=== PATIENT | female | born 1980 | race African-American/Black ===

== ENCOUNTER 2017-04-05 09:56 | Emergency (ER) | payer OTHER ==
[2017-04-05] MEDS ORDERED: NS 0.9% 1000 ML* 1,000 ML IV ONE (10:38)
[2017-04-05 11:05] LABS: Hematocrit 42 % (35-47); Mean Corpuscular HGB Conc 34 g/dl (31-36); Mean Corpuscular Hemoglobin 32 pg (27-31); Mean Corpuscular Volume 94 fL (80-97); Mean Platelet Volume 7 um3 (7.4-10.4); Red Blood Count 4.43 10^6/ul (4.0-5.4); Red Cell Distribution Width 12 % (10.5-15); White Blood Count 3.8 10^3/ul (3.5-10.8)
[2017-04-05 11:16] LABS: Urine Bacteria Absent (Absent); Urine Bilirubin Negative (Negative); Urine Glucose Negative (Negative); Urine Nitrite Negative (Negative)
[2017-04-05 11:24] LABS: ALT 14 U/L (7-52); AST 17 U/L (13-39); Albumin 4.7 g/dL (3.2-5.2); Alkaline Phosphatase 40 U/L (34-104); Anion Gap 8 mmol/L (2-11); BUN/Creatinine Ratio 20.8 (8-20); Blood Urea Nitrogen 10 mg/dL (6-24); C Reactive Protein < 1.00 mg/L (< 5.00); CO2 Carbon Dioxide 24 mmol/L (22-32); Calcium 9.5 mg/dL (8.6-10.3); Chloride 107 mmol/L (101-111); EGFR African American 190.4 (>60); Globulin 3.1 g/dL (2-4); Glucose 77 mg/dL (70-100); Magnesium 1.9 mg/dL (1.9-2.7); Potassium 3.7 mmol/L (3.5-5.0); Sodium 139 mmol/L (133-145); Total Protein 7.8 g/dL (6.4-8.9)
[2017-04-05 11:31] LABS: Benzodiazepine Urine Screen None Detected (None Detect)
[2017-04-05 11:39] LABS: Alcohol < 10 mg/dL (<10)
[2017-04-05 11:55] LABS: TSH (Thyroid Stimulating Horm) 0.79 mcIU/mL (0.34-5.60)
[2017-04-05 12:50] VITALS: BP 114/68
--- NOTE | 2017-04-05 17:26 | ED ---
Sukumar Cox Angela, scribed for Rocky Montemayor MD on 04/05/17 at 1039 . Dizziness - HPI Summary HPI Summary: This pt is a 36 y/o female presenting to [facility] c/o dizziness and light- headedness since yesterday. Pt reports that yesterday she had two alcoholic drinks at a friend's house yesterday. One drink was made by a friend, which included cranberry soda. She states the freezer was blocking where the drink was being made, unable to see what was put in the drink. As she was drinking the drink she noticed something very small floating in her drink. Pt believes something was added to her drink. The second drink she had was a beer. Pt notes that she left after the 2 drinks and states she felt "like she had been at the bars all night." Today upon waking up, pt felt light-headed and off-balance, nauseous, subjective fever and chills. She reports she almost passed out today. She denies any PMHx. Pt is a former smoker, quit 2 years ago. Pt is a former marijuana smoker, quit 3 weeks ago. - History Of Current Complaint Chief Complaint: EDDizziness Stated Complaint: FEVER,DIZZY Time Seen by Provider: 04/05/17 10:26 Hx Obtained From: Patient Onset/Duration: Still Present Timing: Hours Character: Lightheaded, Dizzy Aggravating Factor(s): Nothing Alleviating Factor(s): Nothing Associated Signs And Symptoms: Positive: Nausea, Other: - POS: off-balance, light-headedness, nausea, and chills.. Negative: Vomiting - Allergies/Home Medications Allergies/Adverse Reactions: Allergies Allergy/AdvReac Type Severity Reaction Status Date / Time No Known Allergies Allergy Verified 08/22/15 11:52 PMH/Surg Hx/FS Hx/Imm Hx Endocrine/Hematology History: Denies: Hx Diabetes Cardiovascular History: Denies: Hx Hypertension Psychiatric History: Reports: Hx Anxiety, Hx Depression - Surgical History Surgery Procedure, Year, and Place: Keloid surgery on chest. Infectious Disease History: No Infectious Disease History: Denies: Traveled Outside the [place] in Last 30 Days - Family History Known Family History: Positive: Cardiac Disease Negative: Hypertension, Diabetes, Other - high cholesterol - Social History Alcohol Use: Occasionally Alcohol Amount: denies while Substance Use Type: Reports: Marijuana - quit 3 weeks ago. Substance Use Comment - Amount & Last Used: denies while Smoking Status (MU): Former Smoker - quit 2 years ago Type: Cigarettes Amount Used/How Often: 1/4 PPD Length of Time of Smoking/Using Tobacco: 10 years Have You Smoked in the Last Year: No Review of Systems Positive: Fever - subjective, Chills Eyes: Negative ENT: Negative Cardiovascular: Negative Positive: Nausea. Negative: Vomiting Neurological: Other - dizziness, light-headedness, off-balance All Other Systems Reviewed And Are Negative: Yes Physical Exam - Summary Physical Exam Summary: VITAL SIGNS: Reviewed. GENERAL: Patient is a well-developed and nourished female who is lying comfortable in the stretcher. Patient is not in any acute respiratory distress. HEAD AND FACE: No signs of trauma. No ecchymosis, hematomas or skull depressions. No sinus tenderness. EYES: PERRLA, EOMI x 2, No injected conjunctiva, no nystagmus. EARS: Hearing grossly intact. Ear canals and tympanic membranes are within normal limits. MOUTH: Oropharynx within normal limits. NECK: Supple, trachea is midline, no adenopathy, no JVD, no carotid bruit, no c- spine tenderness, neck with full ROM. CHEST: Symmetric, no tenderness at palpation LUNGS: Clear to auscultation bilaterally. No wheezing or crackles. CVS: Regular rate and rhythm, S1 and S2 present, no murmurs or gallops appreciated. ABDOMEN: Soft, non-tender. No signs of distention. No rebound no guarding, and no masses palpated. Bowel sounds are normal. EXTREMITIES: FROM in all major joints, no edema, no cyanosis or clubbing. NEURO: Alert and oriented x 3. No acute neurological deficits. Speech is normal and follows commands. SKIN: Dry and warm GCS: 15 Triage Information Reviewed: Yes Vital Signs On Initial Exam: Initial Vitals Temp Pulse Resp BP Pulse Ox 97.9 F 95 16 123/93 98 04/05/17 09:57 04/05/17 09:57 04/05/17 09:57 04/05/17 09:57 04/05/17 09:57 Vital Signs Reviewed: Yes Diagnostics - Vital Signs Vital Signs Temp Pulse Resp BP Pulse Ox 04/05/17 09:57 97.9 F 95 16 123/93 98 - Laboratory Lab Results: Lab Results 04/05/17 04/05/17 04/05/17 Range/Units 10:50 10:50 10:50 WBC 3.8 (3.5-10.8) 10^3/ul RBC 4.43 (4.0-5.4) 10^6/ul Hgb 14.0 (12.0-16.0) g/dl Hct 42 (35-47) % MCV 94 (80-97) fL MCH 32 H (27-31) pg MCHC 34 (31-36) g/dl RDW 12 (10.5-15) % Plt Count 243 (150-450) 10^3/ul MPV 7 L (7.4-10.4) um3 Neut % (Auto) 50.7 (38-83) % Lymph % (Auto) 37.5 (25-47) % [place] % (Auto) 10.0 H (1-9) % Eos % (Auto) 0.9 (0-6) % Baso % (Auto) 0.9 (0-2) % Absolute Neuts (auto) 1.9 (1.5-7.7) 10^3/ul Absolute Lymphs (auto) 1.4 (1.0-4.8) 10^3/ul Absolute Monos (auto) 0.4 (0-0.8) 10^3/ul Absolute Eos (auto) 0 (0-0.6) 10^3/ul Absolute Basos (auto) 0 (0-0.2) 10^3/ul Absolute Nucleated RBC 0 10^3/ul Nucleated RBC % 0.1 Sodium 139 (133-145) mmol/L Potassium 3.7 (3.5-5.0) mmol/L Chloride 107 (101-111) mmol/L Carbon Dioxide 24 (22-32) mmol/L Anion Gap 8 (2-11) mmol/L BUN 10 (6-24) mg/dL Creatinine 0.48 L (0.51-0.95) mg/dL Est GFR ( Amer) 190.4 (>60) Est GFR (Non-Af Amer) 148.0 (>60) BUN/Creatinine Ratio 20.8 H (8-20) Glucose 77 (70-100) mg/dL Calcium 9.5 (8.6-10.3) mg/dL Magnesium 1.9 (1.9-2.7) mg/dL Total Bilirubin 1.50 H (0.2-1.0) mg/dL AST 17 (13-39) U/L ALT 14 (7-52) U/L Alkaline Phosphatase 40 (34-104) U/L Troponin I 0.00 (<0.04) ng/mL C-Reactive Protein < 1.00 (< 5.00) mg/L B-Natriuretic Peptide 8 ( - 100) pg/mL Total Protein 7.8 (6.4-8.9) g/dL Albumin 4.7 (3.2-5.2) g/dL Globulin 3.1 (2-4) g/dL Albumin/Globulin Ratio 1.5 (1-3) TSH 0.79 (0.34-5.60) mcIU/mL Beta HCG, Quant < 0.60 mIU/mL Urine Color Urine Appearance Urine pH (5-9) Ur Specific [place] (1.010-1.030) Urine Protein (Negative) Urine Ketones (Negative) Urine Blood (Negative) Urine Nitrate (Negative) Urine Bilirubin (Negative) Urine Urobilinogen (Negative) Ur Leukocyte Esterase (Negative) Urine WBC (Auto) (Absent) Urine RBC (Auto) (Absent) Ur Squamous Epith Cells (Absent) Urine Bacteria (Absent) Urine Glucose (Negative) Urine Opiates Screen (None Detect) Ur Barbiturates Screen (None Detect) Ur Phencyclidine Scrn (None Detect) Ur Amphetamines Screen (None Detect) U Benzodiazepines Scrn (None Detect) Urine Cocaine Screen (None Detect) U Cannabinoids Screen (None Detect) Serum Alcohol < 10 (<10) mg/dL HIV 1&2 Antibody (Nonreactive) 04/05/17 04/05/17 04/05/17 Range/Units 10:50 11:00 11:00 WBC (3.5-10.8) 10^3/ul RBC (4.0-5.4) 10^6/ul Hgb (12.0-16.0) g/dl Hct (35-47) % MCV (80-97) fL MCH (27-31) pg MCHC (31-36) g/dl RDW (10.5-15) % Plt Count (150-450) 10^3/ul MPV (7.4-10.4) um3 Neut % (Auto) (38-83) % Lymph % (Auto) (25-47) % [place] % (Auto) (1-9) % Eos % (Auto) (0-6) % Baso % (Auto) (0-2) % Absolute Neuts (auto) (1.5-7.7) 10^3/ul Absolute Lymphs (auto) (1.0-4.8) 10^3/ul Absolute Monos (auto) (0-0.8) 10^3/ul Absolute Eos (auto) (0-0.6) 10^3/ul Absolute Basos (auto) (0-0.2) 10^3/ul Absolute Nucleated RBC 10^3/ul Nucleated RBC % Sodium (133-145) mmol/L Potassium (3.5-5.0) mmol/L Chloride (101-111) mmol/L Carbon Dioxide (22-32) mmol/L Anion Gap (2-11) mmol/L BUN (6-24) mg/dL Creatinine (0.51-0.95) mg/dL Est GFR ( Amer) (>60) Est GFR (Non-Af Amer) (>60) BUN/Creatinine Ratio (8-20) Glucose (70-100) mg/dL Calcium (8.6-10.3) mg/dL Magnesium (1.9-2.7) mg/dL Total Bilirubin (0.2-1.0) mg/dL AST (13-39) U/L ALT (7-52) U/L Alkaline Phosphatase (34-104) U/L Troponin I (<0.04) ng/mL C-Reactive Protein (< 5.00) mg/L B-Natriuretic Peptide ( - 100) pg/mL Total Protein (6.4-8.9) g/dL Albumin (3.2-5.2) g/dL Globulin (2-4) g/dL Albumin/Globulin Ratio (1-3) TSH (0.34-5.60) mcIU/mL Beta HCG, Quant mIU/mL Urine Color Yellow Urine Appearance Cloudy Urine pH 5.0 (5-9) Ur Specific [place] 1.021 (1.010-1.030) Urine Protein Negative (Negative) Urine Ketones Trace H (Negative) Urine Blood 1+ H (Negative) Urine Nitrate Negative (Negative) Urine Bilirubin Negative (Negative) Urine Urobilinogen Negative (Negative) Ur Leukocyte Esterase Negative (Negative) Urine WBC (Auto) Trace(0-5/hpf) (Absent) Urine RBC (Auto) Trace(0-2/hpf) (Absent) Ur Squamous Epith Cells Present H (Absent) Urine Bacteria Absent (Absent) Urine Glucose Negative (Negative) Urine Opiates Screen None detected (None Detect) Ur Barbiturates Screen None detected (None Detect) Ur Phencyclidine Scrn None detected (None Detect) Ur Amphetamines Screen None detected (None Detect) U Benzodiazepines Scrn None detected (None Detect) Urine Cocaine Screen None detected (None Detect) U Cannabinoids Screen Presumptive positive H (None Detect) Serum Alcohol (<10) mg/dL HIV 1&2 Antibody Nonreactive (Nonreactive) Result Diagrams: 04/05/17 10:50 04/05/17 10:50 Lab Statement: Any lab studies that have been ordered have been reviewed, and results considered in the medical decision making process. - EKG 1107 Cardiac Rate: NL EKG Rhythm: Sinus Rhythm - at 76 bpm EKG Interpretation: No ST elevation. Normal axis Re-Evaluation - Re-Evaluation First Eval Re-Evaluation Time: 12:31 Comment: Pt reports feeling better. Dizzy Course/Dx - Course Assessment/Plan: This pt is a 36 y/o female presenting to [facility] c/o dizziness and light-headedness since yesterday. Pt reports that yesterday she had two alcoholic drinks at a friend's house yesterday. One drink was made by a friend, which included cranberry soda. She states the freezer was blocking where the drink was being made, unable to see what was put in the drink. As she was drinking the drink she noticed something very small floating in her drink. Pt believes something was added to her drink. The second drink she had was a beer. Pt notes that she left after the 2 drinks and states she felt "like she had been at the bars all night." Today upon waking up, pt felt light-headed and off- balance, nauseous, subjective fever and chills. She reports she almost passed out today. She denies any PMHx. Pt is a former smoker, quit 2 years ago. Pt is a former marijuana smoker, quit 3 weeks ago. Test results without any significant abnormalities except positive for marijuana. In the ED course the pt was hydrated. The pt is feeling better. Before discharge, neurological exam is normal and intact. Therefore, I decided not to a head CT. Since the pt is feeling better and has no complaints, she will be discharged home with follow up from her PCP. Pt is hemodynamically stable, alert and oriented x3. - Diagnoses Differential Diagnosis/HQI/PQRI: Benign Paroxysmal Positional Vertigo, Labyrinthitis, Meniere's Disease, Medication Reaction Provider Diagnoses: Dizziness Discharge - Discharge Plan Condition: Stable Disposition: HOME Patient Education Materials: Dizziness (ED) Referrals: Rocky Lui MD [Primary Care Provider] - Additional Instructions: Please follow up with your primary care provider. RETURN TO THE ED FOR ANY WORSENING OR NEW SYMPTOMS. The documentation as recorded by the Sukumar heard Angela accurately reflects the service I personally performed and the decisions made by me, Rocky Montemayor MD.
== END 2017-04-05 12:54 | disposition home or self-care (01) ==
LOC: ED 09:56
DX: R42 Dizziness and giddiness (principal); R11.0 Nausea; R50.9 Fever, unspecified; F17.210 Nicotine dependence, cigarettes, uncomplicated
CPT/HCPCS: 36415; 80053; 80307; 80320; 81003; 81015; 83735; 83880; 84443; 84484; 84702; 85025; 86140; 86703; 93005; 99283; G0480

== ENCOUNTER 2017-04-11 08:15 | Emergency (ER) | payer OTHER ==
[2017-04-11 10:49] LABS: Hematocrit 38 % (35-47); Hemoglobin 12.8 g/dl (12.0-16.0); Mean Corpuscular HGB Conc 34 g/dl (31-36); Mean Corpuscular Hemoglobin 32 pg (27-31); Mean Corpuscular Volume 94 fL (80-97); Mean Platelet Volume 7 um3 (7.4-10.4); Red Blood Count 4.06 10^6/ul (4.0-5.4); Red Cell Distribution Width 13 % (10.5-15); White Blood Count 3.3 10^3/ul (3.5-10.8)
[2017-04-11 10:52] LABS: Add Diff/Slide Review? Slide Review Added; Comments Flag Yes
[2017-04-11 11:12] LABS: ALT 22 U/L (7-52); AST 18 U/L (13-39); Alkaline Phosphatase 33 U/L (34-104); Amylase 72 U/L (29-103); Anion Gap 5 mmol/L (2-11); Blood Urea Nitrogen 11 mg/dL (6-24); C Reactive Protein < 1.00 mg/L (< 5.00); CO2 Carbon Dioxide 28 mmol/L (22-32); Calcium 9.2 mg/dL (8.6-10.3); Chloride 104 mmol/L (101-111); Creatine Kinase 67 U/L (10-223); EGFR African American 162.7 (>60); EGFR Non-African American 126.5 (>60); Glucose 88 mg/dL (70-100); Lipase 23 U/L (11.0-82.0); Potassium 3.6 mmol/L (3.5-5.0); Sodium 137 mmol/L (133-145)
[2017-04-11 11:45] LABS: Urine Bilirubin Negative (Negative); Urine Glucose Negative (Negative); Urine Nitrite Negative (Negative)
--- NOTE | 2017-04-11 12:36 | RAD ---
INDICATION: Assess IUD position COMPARISON: None TECHNIQUE: Longitudinal and transverse transabdominal and transvaginal scans of the pelvis were obtained. FINDINGS: Uterus: The uterus is normal in size. There are no focal masses. The uterus measures 8.5 x 3.1 x 5.5 cm. Endometrial thickness: The endometrial thickness is measured at 0.4 cm. There is an IUD in expected position. Free fluid: There is no significant free fluid . Ovaries: The ovaries are normal in size. The right ovary measures 3.4 x 2.2 x 2.6 cm. The left ovary measures 4.0 x 1.8 x 3.6 cm. . Doppler interrogation demonstrates flow to each ovary. Other: None IMPRESSION: IUD IN EXPECTED POSITION
[2017-04-11 13:17] VITALS: BP 121/76
--- NOTE | 2017-04-11 21:11 | ED ---
Natty Cox Alfonso, scribed for Josie Joe MD on 04/11/17 at 1056 . GI/ HPI - HPI Summary HPI Summary: This patient is a 36 year old F presenting to [facility] with a chief complaint of pelvic pain since earlier today. She states my Mirena is knocked out of place and I did the check reaching for the string and it is on the side. [facility] She has an appointment in 2 days ago to remove the IUD but when she had worsening abdominal pain she came for evaluation now.. The patient rates the sharp pain 4/10 in severity. Symptoms aggravated by urination and BM. Symptoms alleviated by nothing. Patient reports CP (currently resolved, every 5-10 minutes for a few seconds at a time this morning while at rest drinking coffee), right sided abdominal pain (with BM and currently resolved), and vaginal bleeding (spotting). Patient denies SOB and nausea. She was seen at [facility] on 04/05/17 with a provider diagnosis of dizziness. In her past she has worn a heart monitor and kept a log in which the results came back good. Pt's mother of CAD at age 51 so she worries when she has chest pain. - History of Current Complaint Chief Complaint: EDAbdPain Stated Complaint: ABD/CHEST PAIN Hx Obtained From: Patient, Medical Records - ED record Onset/Duration: Started Hours Ago, Still Present Timing: Constant Severity: Moderate Current Severity: Moderate - 4/10 pain Vaginal Bleeding Description: Bright Red - spotting Number of Pads per Day: 1 Pain Intensity: 4 - /10 Location of Pain: RLQ, LLQ, Suprapubic Pain Characteristics: Sharp Associated Signs and Symptoms: Positive: Other: - CP (currently resolved, every 5-10 minutes for a few seconds at a time this morning while at rest drinking coffee), right sided abdominal pain (with BM and currently resolved), and vaginal bleeding (spotting). Patient denies SOB and nausea. Additional Signs & Symptoms: Positive: Vaginal Bleeding, IUD Aggravating Factor(s): Urination, Bowel Movement Alleviating Factor(s): Nothing - Risk Factors Ectopic Risk Factor(s): IUD Use - Allergy/Home Medications Allergies/Adverse Reactions: Allergies Allergy/AdvReac Type Severity Reaction Status Date / Time No Known Allergies Allergy Verified 08/22/15 11:52 PMH/Surg Hx/FS Hx/Imm Hx Endocrine/Hematology History: Denies: Hx Diabetes Cardiovascular History: Denies: Hx Hypertension Opthamlomology History: Denies: Hx Legally Blind EENT History: Denies: Hx Deafness Psychiatric History: Reports: Hx Anxiety, Hx Depression - Surgical History Surgery Procedure, Year, and Place: Keloid surgery on chest. Infectious Disease History: Yes Infectious Disease History: Denies: Traveled Outside the [place] in Last 30 Days - Family History Known Family History: Positive: Cardiac Disease - mother at 51 y.o. with cardiac arrest Negative: Hypertension, Diabetes, Other - high cholesterol - Social History Alcohol Use: Occasionally Hx Substance Use: Yes Substance Use Type: Reports: Marijuana Hx Tobacco Use: Yes Smoking Status (MU): Former Smoker Type: Cigarettes Amount Used/How Often: 1/4 PPD Length of Time of Smoking/Using Tobacco: 10 years Have You Smoked in the Last Year: No Review of Systems Negative: Fever Positive: Chest Pain Respiratory: Negative Negative: Shortness Of Breath Positive: Abdominal Pain. Negative: Nausea Positive: other - Pelvic pain, vaginal bleeding Skin: Negative Neurological: Negative Psychological: Normal All Other Systems Reviewed And Are Negative: Yes Physical Exam Triage Information Reviewed: Yes Vital Signs On Initial Exam: Initial Vitals Temp Pulse Resp BP Pulse Ox 99 F 85 18 122/72 100 04/11/17 08:21 04/11/17 08:21 04/11/17 08:21 04/11/17 08:21 04/11/17 08:21 Vital Signs Reviewed: Yes Appearance: Positive: Well-Nourished, Ill-Appearing - Mild, Pain Distress - Mild Skin: Positive: Warm, Skin Color Reflects Adequate Perfusion Head/Face: Positive: Normal Head/Face Inspection Eyes: Positive: Conjunctiva Clear ENT: Positive: Normal ENT inspection Neck: Positive: Supple Respiratory/Lung Sounds: Positive: Clear to Auscultation, Breath Sounds Present , Other - no respiratory distress Cardiovascular: Positive: RRR, Pulses are Symmetrical in both Upper and Lower Extremities, Other - brisk capillary refill. Negative: Murmur Abdomen Description: Positive: Nontender, No Organomegaly, Soft, Other: - no guarding, no rebound, nondistended. Bowel Sounds: Positive: Present Pelvic Exam: Positive: external exam normal, no masses, other - Witnessed by female door technician Ernesto. IUD in place with string coming from cervix. Uterus non tender and normal size. Small amount of brown thin vaginal discharge.. Negative : tender adnexa Musculoskeletal: Positive: Strength/ROM Intact Neurological: Positive: Alert, Oriented to Person Place, Time, Other - muscle tone normal, facial symmetry, speech normal, sensory/motor intact Psychiatric: Positive: Normal - [place] Coma Scale Coma Scale Total: 15 Diagnostics - Vital Signs Vital Signs Temp Pulse Resp BP Pulse Ox 04/11/17 09:30 92 111/66 100 04/11/17 09:04 81 99 04/11/17 09:02 107/76 04/11/17 08:21 99 F 85 18 122/72 100 - Laboratory Lab Results: Lab Results 04/11/17 Range/Units 10:39 WBC 3.3 L (3.5-10.8) 10^3/ul RBC 4.06 (4.0-5.4) 10^6/ul Hgb 12.8 (12.0-16.0) g/dl Hct 38 (35-47) % MCV 94 (80-97) fL MCH 32 H (27-31) pg MCHC 34 (31-36) g/dl RDW 13 (10.5-15) % Plt Count 224 (150-450) 10^3/ul MPV 7 L (7.4-10.4) um3 Neut % (Auto) 54.1 (38-83) % Lymph % (Auto) 33.2 (25-47) % [place] % (Auto) 11.6 H (1-9) % Eos % (Auto) 0.6 (0-6) % Baso % (Auto) 0.5 (0-2) % Absolute Neuts (auto) 1.8 (1.5-7.7) 10^3/ul Absolute Lymphs (auto) 1.1 (1.0-4.8) 10^3/ul Absolute Monos (auto) 0.4 (0-0.8) 10^3/ul Absolute Eos (auto) 0 (0-0.6) 10^3/ul Absolute Basos (auto) 0 (0-0.2) 10^3/ul Absolute Nucleated RBC 0 10^3/ul Nucleated RBC % 0.1 Result Diagrams: 04/11/17 10:39 04/11/17 10:39 Lab Statement: Any lab studies that have been ordered have been reviewed, and results considered in the medical decision making process. - EKG 1034 Cardiac Rate: NL EKG Rhythm: Sinus Rhythm - 85 BPM EKG Interpretation: Nml AV/IV CT, QTc, and axis. Loss of R-wave V1 and V2. EKG Comparison: No Significant Change - 04/05/17 - Additional Comments Diagnostic Additional Comments: US Pelvic/Transvag reveals, per radiologist, IUD IN EXPECTED POSITION. ED physician has reviewed this radiology report. Re-Evaluation - Re-Evaluation First Eval Re-Evaluation Time: 11:27 Change: Improved Comment: pain is controlled and her bladder is full. She is awaiting US. GIGU Course/Dx - Course Assessment/Plan: Patients medications reviewed this visit. Pt had labs and transvaginal and abdominal US showing proper placement of IUD. Patient will be discharged with follow [facility] from [facility] that she has scheduled for 2 days. She will evaluate whether to keep her IUD upon discussion with [facility]. The patient is agreeable with this plan. - Diagnoses Differential Diagnoses - Female: Ectopic , , Pelvic Inflammatory Disease, Other - misplaced IUD and bowel perforation Provider Diagnoses: Pelvic pain, Abdominal pain, Chest pain, IUD check up Discharge - Discharge Plan Condition: Stable Disposition: HOME Patient Education Materials: Chest Pain (ED), Pelvic Pain in Women (ED) Referrals: Rocky Lui MD [Primary Care Provider] - Additional Instructions: Keep your appointment with [facility]. We have sent cultures from our pelvic exam today. We will contact you if you need further treatment based on these results. Your heart tests were normal today, and the IUD is in the expected position based on the ultrasound exam. Return to the ER if you have any new or worsening symptoms. The documentation as recorded by the Natty heard Alfonso accurately reflects the service I personally performed and the decisions made by me, Josie Joe MD.
== END 2017-04-11 13:21 | disposition home or self-care (01) ==
LOC: ED 08:15
DX: R10.2 Pelvic and perineal pain (principal); R10.9 Unspecified abdominal pain; R07.9 Chest pain, unspecified; Z87.891 Personal history of nicotine dependence; Z97.5 Presence of (intrauterine) contraceptive device
CPT/HCPCS: 36415; 76830; 76856; 80053; 81003; 82150; 82550; 83605; 83690; 84484; 84702; 85025; 86140; 87480; 87510; 87661; 93005; 99282

== ENCOUNTER 2017-06-21 02:18 | Emergency (ER) | payer OTHER ==
[2017-06-21] MEDS ORDERED: Famotidine TAB* 20 MG PO ONE (02:53)
--- NOTE | 2017-06-21 02:59 | ED ---
Medical Screening - HPI Summary HPI Summary: 36yo F presents to ED with concern for possible non-intentional overdose of ibuprofen. She states she has been taking it along with clindamycin for dental pain. Tonight she took 3, 200mg ibuprofen at 2100 and then woke up at 1am and took 3 more. Her pain is gone. She developed some anxiety and heart beating fast. She was very concerned she may have taken too many of the pills. She denies any GI upset, nausea or vomiting. She feels better after eating some saltines here in the ED. She denies any SI or intention to harm herself. 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 - History of Current Complaint Chief Complaint: EDGeneral Stated Complaint: GENERAL Time Seen by Provider: 06/21/17 02:32 PMH/Surg Hx/FS Hx/Imm Hx Previously Healthy: Yes Endocrine/Hematology History: Denies: Hx Diabetes Cardiovascular History: Denies: Hx Hypertension Sensory History: Denies: Hx Legally Blind, Hx Deafness Opthamlomology History: Denies: Hx Legally Blind Psychiatric History: Reports: Hx Anxiety, Hx Depression - Surgical History Surgery Procedure, Year, and Place: Keloid surgery on chest. Infectious Disease History: No Infectious Disease History: Denies: Traveled Outside the [place] in Last 30 Days - Family History Known Family History: Positive: Cardiac Disease - mother at 51 y.o. with cardiac arrest Negative: Hypertension, Diabetes, Other - high cholesterol - Social History Alcohol Use: Occasionally Alcohol Amount: denies while Hx Substance Use: Yes Substance Use Type: Reports: None Substance Use Comment - Amount & Last Used: three weeks since last use Hx Tobacco Use: Yes Smoking Status (MU): Former Smoker Type: Cigarettes Amount Used/How Often: 1/4 PPD Length of Time of Smoking/Using Tobacco: 10 years Have You Smoked in the Last Year: No Review of Systems Constitutional: Negative Positive: Dental Pain Positive: Palpitations. Negative: Chest Pain Negative: Shortness Of Breath Negative: Vomiting, Nausea Positive: Anxious All Other Systems Reviewed And Are Negative: Yes Physical Exam Triage Information Reviewed: Yes Vital Signs On Initial Exam: Initial Vitals Temp Pulse Resp BP Pulse Ox 36.6 C 85 18 124/82 100 06/21/17 02:21 06/21/17 02:21 06/21/17 02:21 06/21/17 02:21 02/20/18 02:21 Vital Signs Reviewed: Yes Appearance: Positive: Well-Appearing, No Pain Distress Skin: Positive: Warm, Dry Eyes: Positive: Normal, EOMI ENT: Positive: Other - L upper premolar eroded to gumline with no gingival edema , min tenderness.. Negative: Pharyngeal erythema Neck: Positive: Supple, Nontender Respiratory/Lung Sounds: Positive: Clear to Auscultation, Breath Sounds Present Cardiovascular: Positive: Normal, RRR Abdomen Description: Positive: Nontender, Soft Bowel Sounds: Positive: Present Neurological: Positive: Normal, Sensory/Motor Intact Psychiatric: Positive: Normal, Affect/Mood Appropriate Diagnostics - Vital Signs Vital Signs Temp Pulse Resp BP Pulse Ox 06/21/17 02:21 36.6 C 85 18 124/82 100 - Laboratory Lab Statement: Any lab studies that have been ordered have been reviewed, and results considered in the medical decision making process. Re-Evaluation - Re-Evaluation First Eval Change: Improved Course/Dx - Course Course Of Treatment: pt with largely anxiety to taking the med, but possible side effect. Within limit of allowable dosing. Pepcid here. No hint at SI. D/C to f/u with dental. - Diagnoses Provider Diagnoses: Pain due to dental caries, Ibuprofen adverse reaction Discharge - Discharge Plan Condition: Good Disposition: HOME Prescriptions: Famotidine TAB* [Pepcid 20 MG TAB*] 20 mg PO BID #20 tab Patient Education Materials: Ibuprofen (By mouth), Toothache (ED) Referrals: Rocky Lui MD [Primary Care Provider] - Additional Instructions: See your dentist for extraction on the as scheduled. Ibuprofen up to 800mg 3 times daily is MAXIMUM. It can cause stomach upset or even bleeding (gastritis ). Pepcid should calm this. Tylenol may help as well. Eat with ibuprofen. Return if worse, new symptoms or other concerns.
[2017-06-21 03:19] VITALS: BP 113/79
== END 2017-06-21 03:18 | disposition home or self-care (01) ==
LOC: ED 02:18
DX: F41.9 Anxiety disorder, unspecified (principal); T39.315A Adverse effect of propionic acid derivatives, initial encounter; K02.9 Dental caries, unspecified; Z87.891 Personal history of nicotine dependence
CPT/HCPCS: 99282; A9270-GY

== ENCOUNTER 2017-06-22 09:15 | Emergency (ER) | payer OTHER ==
[2017-06-22 09:21] VITALS: BP 118/75
[2017-06-22] MEDS ORDERED: oxyCODONE/Acetamin 5/325 MG* TAB PO ONE (11:50)
--- NOTE | 2017-06-22 12:47 | ED ---
Attila Cox Julia, scribed for Blair Landis on 06/22/17 at 1153 . Headache - HPI Summary HPI Summary: This patient is a 36 year old F presenting to [facility] with a chief complaint of left lower sided tooth pain and headache for the past four days. Patient denies fever. The patient rates the pain 9/10 in severity. Symptoms are no relieved by Tylenol and Ibuprofen. Patient has an appointment to see her dentist on . Patient is currently taking Amoxicilin with 3 days left in a 10 day course. - History Of Current Complaint Chief Complaint: EDDentalPain Stated Complaint: DENTAL PAIN Time Seen by Provider: 06/22/17 11:43 Hx Obtained From: Patient Hx Last Menstrual Period: 01/22/16 Onset/Duration: Started days ago, Still Present Currently Pain Is: Current Pain Scale(0-10)= - 9 Timing: Constant Location of Headache: Other: - L sided Associated Signs And Symptoms: Other (Noted In Comments) - L dental pain - Allergies/Home Medications Allergies/Adverse Reactions: Allergies Allergy/AdvReac Type Severity Reaction Status Date / Time amoxicillin Allergy Swelling Verified 06/21/17 02:23 PMH/Surg Hx/FS Hx/Imm Hx Endocrine/Hematology History: Denies: Hx Diabetes Cardiovascular History: Denies: Hx Hypertension Sensory History: Denies: Hx Legally Blind Opthamlomology History: Denies: Hx Legally Blind Psychiatric History: Reports: Hx Anxiety, Hx Depression - Surgical History Surgery Procedure, Year, and Place: Keloid surgery on chest. Infectious Disease History: No Infectious Disease History: Denies: Traveled Outside the [place] in Last 30 Days - Family History Known Family History: Positive: Cardiac Disease - mother at 51 y.o. with cardiac arrest Negative: Hypertension, Diabetes, Other - high cholesterol - Social History Alcohol Use: Occasionally Alcohol Amount: denies while Hx Substance Use: Yes Substance Use Type: Reports: None Substance Use Comment - Amount & Last Used: three weeks since last use Hx Tobacco Use: Yes Smoking Status (MU): Former Smoker Type: Cigarettes Amount Used/How Often: 1/4 PPD Length of Time of Smoking/Using Tobacco: 10 years Have You Smoked in the Last Year: No Review of Systems Negative: Fever Positive: Dental Pain - L lower Positive: Headache - L sided All Other Systems Reviewed And Are Negative: Yes Physical Exam - Summary Physical Exam Summary: Appearance: Well appearing, no pain distress Skin: warm, dry, reflects adequate perfusion Head/face: tenderness along teeth 11 and 12 Eyes: EOMI, NATHAN ENT: normal Neck: supple, non-tender Respiratory: CTA, breath sounds present Cardiovascular: RRR, pulses symmetrical Abdomen: non-tender, soft Bowel: present Musculoskeletal: normal, strength/ROM intact Neuro: normal, sensory motor intact, A&Ox3 Triage Information Reviewed: Yes Vital Signs On Initial Exam: Initial Vitals Temp Pulse Resp BP Pulse Ox 99.1 F 78 18 118/75 100 06/22/17 09:17 06/22/17 09:17 06/22/17 09:17 06/22/17 09:17 06/22/17 09:17 Vital Signs Reviewed: Yes Diagnostics - Vital Signs Vital Signs Temp Pulse Resp BP Pulse Ox 06/22/17 09:17 99.1 F 78 18 118/75 100 - Laboratory Lab Statement: Any lab studies that have been ordered have been reviewed, and results considered in the medical decision making process. Headache Course/Dx - Course Course Of Treatment: Patient presents with left sided tooth pain and headache for the past four days. Patient denies fever. Patient has an appointment to see her dentist on 06/29/17. Patient is currently taking Amoxicilin with 3 days left in a 10 day course. Patient is given Oxycodone for pain. - Diagnoses Provider Diagnoses: Pain, dental Discharge - Discharge Plan Condition: Stable Disposition: HOME Prescriptions: Oxycodone HCl/Acetaminophen [Percocet 5-325 mg Tablet] 1 each PO TID #10 tablet MDD 3 Patient Education Materials: Toothache (ED) Referrals: Rocky Lui MD [Primary Care Provider] - Additional Instructions: Follow up with your dentist as scheduled on 06/29/17. The documentation as recorded by the Attila heard Julia accurately reflects the service I personally performed and the decisions made by , Blair Landis.
== END 2017-06-22 11:59 | disposition home or self-care (01) ==
LOC: ED 09:15
DX: K08.89 Other specified disorders of teeth and supporting structures (principal); Z87.891 Personal history of nicotine dependence; Z88.0 Allergy status to penicillin; Z79.899 Other long term (current) drug therapy
CPT/HCPCS: 99282; A9270-GY

== ENCOUNTER 2018-11-27 18:13 | Emergency (ER) | payer OTHER ==
[2018-11-27 18:41] VITALS: BP 130/84
--- NOTE | 2018-11-27 18:49 | UC ---
Abdominal Pain Female HPI - HPI Summary HPI Summary: 38 yo female presents with nausea. She tells me that she restarted her paxil 3 days ago after seeing her PCP - after being off of this for the last month. Since restarting paxil she has had nausea and a decreased appetite during the day. She has not vomited and has no loose stools or diarrhea. Nausea with no change before or after eating. She feels well otherwise and denies fever, chills , recent illness, SOB, chest pain, abdominal pain, dysuria, vaginal discharge or bleeding. LMP was 1 week ago. - History of Current Complaint Chief Complaint: UCGI Stated Complaint: NAUSEA Time Seen by Provider: 11/27/18 18:48 Hx Obtained From: Patient Hx Last Menstrual Period: 11/20 Onset/Duration: Sudden Onset Severity Currently: None Pain Intensity: 0 Allergies/Adverse Reactions: Allergies Allergy/AdvReac Type Severity Reaction Status Date / Time amoxicillin Allergy Swelling Verified 11/27/18 18:41 Home Medications: Home Medications PARoxetine HCL TAB* [Paxil TAB*] 20 mg PO DAILY 11/27/18 [History Confirmed ] PMH/Surg Hx/FS Hx/Imm Hx Psychological History: Anxiety - Surgical History Surgical History: Yes Surgery Procedure, Year, and Place: Keloid surgery on chest. - Family History Known Family History: Positive: Cardiac Disease - mother at 51 y.o. with cardiac arrest Negative: Hypertension, Diabetes, Other - high cholesterol - Social History Occupation: Employed Full-time Lives: With Family Alcohol Use: Occasionally Alcohol Amount: denies while Substance Use Type: None Substance Use Comment - Amount & Last Used: three weeks since last use Smoking Status (MU): Former Smoker Type: Cigarettes Amount Used/How Often: 1/4 PPD Length of Time of Smoking/Using Tobacco: 10 years Have You Smoked in the Last Year: No Household Exposure Type: Cigarettes Review of Systems All Other Systems Reviewed And Are Negative: Yes Constitutional: Positive: Negative Skin: Positive: Negative Eyes: Positive: Negative ENT: Positive: Negative Respiratory: Positive: Negative Cardiovascular: Positive: Negative Gastrointestinal: Positive: Nausea Genitourinary: Positive: Negative Neurovascular: Positive: Negative Neurological: Positive: Negative Psychological: Positive: Negative Physical Exam - Summary Physical Exam Summary: GENERAL: NAD. WDWN. No pain distress. SKIN: No rashes, sores, lesions, or open wounds. NECK: Supple. Nontender. No lymphadenopathy. CHEST: CTAB. No r/r/w. No accessory muscle use. Breathing comfortably and in no distress. CV: RRR. Without m/r/g. Pulses intact. Cap refill <2seconds ABDOMEN: Soft. NTTP. No distention or guarding. No CVA tenderness. Bowel sounds present NEURO: Alert. PSYCH: Age appropriate behavior. Triage Information Reviewed: Yes Vital Signs: Initial Vital Signs Temp 98.7 F 11/27/18 18:38 Pulse 75 11/27/18 18:38 Resp 14 11/27/18 18:38 BP 130/84 11/27/18 18:38 Pulse Ox 100 11/27/18 18:38 Vital Signs Reviewed: Yes Abd Pain Female Course/Dx - Course Course Of Treatment: UA negative. Urine negative. Suspect nausea is related to her restarting her paxil. She was given zofran in the clinic with good relief of her nausea. Will rx for this and advise her to continue the paxil for at least 10-14 days and if nausea persists to f/u with PCP. Take paxil with food. - Differential Dx/Diagnosis Provider Diagnosis: Nausea Discharge - Sign-Out/Discharge Documenting (check all that apply): Patient Departure All imaging exams completed and their final reports reviewed: No Studies - Discharge Plan Condition: Stable Disposition: HOME Prescriptions: Ondansetron ODT TAB* [Zofran 4 MG Odt TAB*] 4 mg PO Q8H PRN #12 tab.odt PRN Reason: Nausea Patient Education Materials: Acute Nausea and Vomiting (ED) Referrals: Rocky Lui MD [Primary Care Provider] - Additional Instructions: If you develop a fever, shortness of breath, chest pain, new or worsening symptoms - please call your PCP or go to the ED immediately. Please complete your labwork ordered by your primary doctor - Billing Disposition and Condition Condition: STABLE Disposition: Home - Attestation Statements Provider Attestation: I was available for consult. This patient was seen by the RAHEL. The patient was not presented to, seen by, or examined by me. -[place]
[2018-11-27] MEDS ORDERED: Ondansetron ODT TAB* 4 MG SL ONE (19:02)
== END 2018-11-27 19:16 | disposition home or self-care (01) ==
LOC: UCEAST 18:13
DX: R11.0 Nausea (principal); F41.9 Anxiety disorder, unspecified; Z87.891 Personal history of nicotine dependence
CPT/HCPCS: 81002; 81025; 99212; A9270-GY; G0463

== ENCOUNTER 2019-06-17 08:35 | Emergency (ER) | payer SELFPAY ==
--- NOTE | 2019-06-17 09:05 | UC ---
UC Dental HPI - HPI Summary HPI Summary: has had history dental decay, she has 2 lower R molars that decayed and broke off in past , started being painful over past 2 days, today jaw pain and swelling is taking Tylenol with little relief - History of Current Complaint Chief Complaint: UCDentalProblem Stated Complaint: DENTAL PAIN Time Seen by Provider: 06/17/19 09:02 Hx Obtained From: Patient Hx Last Menstrual Period: 05/26/19 ?: No Onset/Duration: Gradual Onset Severity: Severe Pain Intensity: 9 Aggravating Factor(s): Chewing Alleviating Factor(s): Nothing Related History: Other - broken teeth - Allergies/Home Medications Allergies/Adverse Reactions: Allergies Allergy/AdvReac Type Severity Reaction Status Date / Time amoxicillin Allergy Swelling Verified 06/17/19 08:52 PMH/Surg Hx/FS Hx/Imm Hx Previously Healthy: Yes - Surgical History Surgical History: Yes Surgery Procedure, Year, and Place: Keloid surgery on chest. - Family History Known Family History: Positive: Cardiac Disease - mother at 51 y.o. with cardiac arrest Negative: Hypertension, Diabetes, Other - high cholesterol - Social History Occupation: Unemployed Lives: With Family Alcohol Use: Occasionally Alcohol Amount: denies while Substance Use Type: None Substance Use Comment - Amount & Last Used: three weeks since last use Smoking Status (MU): Former Smoker Type: Cigarettes Amount Used/How Often: 1/4 PPD Length of Time of Smoking/Using Tobacco: 10 years Have You Smoked in the Last Year: No Household Exposure Type: Cigarettes Review of Systems All Other Systems Reviewed And Are Negative: Yes Constitutional: Positive: Negative Skin: Positive: Negative ENT: Positive: Dental Pain. Negative: Sore Throat, Ear Ache Respiratory: Positive: Negative Cardiovascular: Positive: Negative Neurological/Mental Status: Positive: Negative. Negative: Headache Psychological: Positive: Negative Is Patient Immunocompromised?: No Physical Exam Triage Information Reviewed: Yes Appearance: Well-Appearing, No Pain Distress, Well-Nourished Vital Signs: Initial Vital Signs Temp 98 F 06/17/19 08:49 Pulse 93 06/17/19 08:49 Resp 17 06/17/19 08:49 BP 163/104 06/17/19 08:49 Pulse Ox 100 06/17/19 08:49 Vital Signs Reviewed: Yes ENT: Positive: Dental tenderness - R bottom molars - teeth fractured at gum line , gum swollen and red, no drainage noted also R lower jaw with mild swelling Dental: Positive: Gross Decay/Caries @. Negative: Cervical Lymphadenopathy Neck exam: Normal Respiratory Exam: Normal Cardiovascular Exam: Normal Cardiovascular: Positive: RRR Neurological Exam: Normal Neurological: Positive: Alert Psychological Exam: Normal Skin Exam: Normal Dental Complaint Course/Dx - Course Course Of Treatment: iStop Reference #: [id number] - Differential Dx/Diagnosis Differential Diagnosis/Dx: Dental Abscess, Dental Caries, Fractured Tooth, Gingivitis, TMJ Syndrome Provider Diagnosis: Dental abscess Discharge ED - Sign-Out/Discharge Documenting (check all that apply): Patient Departure All imaging exams completed and their final reports reviewed: No Studies - Discharge Plan Condition: Good Disposition: HOME Patient Education Materials: Dental Abscess (ED) Referrals: Rocky Lui MD [Primary Care Provider] - 2 Days (for recheck) Additional Instructions: start antibiotic and take as directed use ibuprofen as directed -take with food Please seek a dentist and follow-up - Billing Disposition and Condition Condition: GOOD Disposition: Home
[2019-06-17] MEDS ORDERED: Ibuprofen TAB* 400 MG PO ONE (09:10)
[2019-06-17] MEDS ORDERED: Clindamycin CAP* 150 MG PO ONE (09:11)
[2019-06-17 09:46] VITALS: BP 142/89
== END 2019-06-17 09:47 | disposition home or self-care (01) ==
LOC: UCEAST 08:35
DX: K04.7 Periapical abscess without sinus (principal); Z88.0 Allergy status to penicillin; Z87.891 Personal history of nicotine dependence
CPT/HCPCS: 99212; A9270-GY; G0463